=== PATIENT | female | born 1985 | race Caucasian/White ===

== ENCOUNTER 2017-03-09 23:13 | Emergency (ER) | payer MEDICAID ==
[2017-03-10] MEDS ORDERED: IBUPROFEN 600 MG TABLET PO ONE (00:25)
[2017-03-10] MEDS ORDERED: ACETAMINOPHEN 325 MG TABLET PO ONE (00:25)
--- NOTE | 2017-03-10 00:26 | ER Document Report ---
ED General - General Chief Complaint: Cold Symptoms Stated Complaint: TROUBLE BREATHING Time Seen by Provider: 03/09/17 23:36 Notes: Patient is a 31-year-old female who presents with cough, nasal congestion, bilateral ear pain worse on the right, and cough. Symptoms improved over the past 2-3 days. Patient states she came to the emergency department because she "wanted to figure out what was going on". She is uncertain whether or not she has had similar symptoms past. She has not tried anything to improve her symptoms. She does not identify anything that worsens her symptoms. She has not seen her primary doctor regarding these concerns. She is uncertain of whether or not she has had sick contacts. She denies any vomiting, diarrhea, fever, headache, neck pain or altered mental status. TRAVEL OUTSIDE OF THE [place] IN LAST 30 DAYS: No - Related Data Allergies/Adverse Reactions: codeine Allergy (Verified 03/09/17 23:14) Penicillins Allergy (Verified 03/09/17 23:14) tramadol [Tramadol] Allergy (Verified 03/09/17 23:14) Past Medical History - General Information source: Patient - Social History Smoking Status: Never Smoker Frequency of alcohol use: None Drug Abuse: None Family History: Arthritis, CAD, DM, Hyperlipidemia, Hypertension. denies: CVA, Malignancy, Thyroid Disfunction - Past Medical History Cardiac Medical History: Reports: Hx Hypertension Pulmonary Medical History: Reports: Hx Asthma Denies: Hx Bronchitis, Hx Pneumonia Neurological Medical History: Reports: Hx Migraine Musculoskeltal Medical History: Reports Hx Arthritis, Reports Hx Musculoskeletal Deformity, Reports Hx Musculoskeletal Trauma Past Surgical History: Reports: Hx Section - x1 - Immunizations Immunizations up to date: No Hx Diphtheria, Pertussis, Tetanus Vaccination: No Review of Systems - Review of Systems Notes: Constitutional: Negative for fever. HENT: Positive for sore throat. Eyes: Negative for visual changes. Cardiovascular: Negative for chest pain. Respiratory: Positive for cough Gastrointestinal: Negative for abdominal pain, vomiting or diarrhea. Genitourinary: Negative for dysuria. Musculoskeletal: Negative for back pain. Skin: Negative for rash. Neurological: Negative for headaches, weakness or numbness. 10 point ROS negative except as marked above and in HPI. Physical Exam - Vital signs Vitals: Temp Pulse Resp BP Pulse Ox 99 F 90 18 179/99 H 98 03/09/17 23:24 03/09/17 23:24 03/09/17 23:24 03/09/17 23:24 03/09/17 23:24 Interpretation: Hypertensive Notes: PHYSICAL EXAMINATION: GENERAL: Well-appearing, well-nourished and in no acute distress. HEAD: Atraumatic, normocephalic. EYES: Pupils equal round and reactive to light, extraocular movements intact, sclera anicteric, conjunctiva are normal. ENT: nares patent, oropharynx clear without exudates. Mild tonsillar erythema. Uvula is midline. TMs are clear bilaterally. Moist mucous membranes. NECK: Normal range of motion, bilateral anterior cervical lymphadenopathy that is mobile and tender to palpation LUNGS: Breath sounds clear to auscultation bilaterally and equal. No wheezes rales or rhonchi. HEART: Regular rate and rhythm without murmurs ABDOMEN: Soft, nontender, normoactive bowel sounds. No guarding, no rebound. No masses appreciated. EXTREMITIES: Normal range of motion, no pitting or edema. No cyanosis. NEUROLOGICAL: No focal neurological deficits. Moves all extremities spontaneously and on command. PSYCH: Normal mood, normal affect. SKIN: Warm, Dry, normal turgor, no rashes or lesions noted. Course - Re-evaluation Re-evalutation: 03/10/17 00:24 Presentation is most consistent with a viral upper respiratory infection. Patient is overall well appearance, vitals within normal limits, well-hydrated. Patient denies any headache, neck pain, and has no evidence of meningismus on examination. Lungs are clear bilaterally. No evidence of respiratory distress. Based on clinical exam and history, I do not suspect an acute pneumonia, meningitis, strep pharyngitis, or an acute encephalitis. No laboratory or imaging testing is indicated at this time. Suspect likely viral upper respiratory infection. At this time will discharge with return precautions and follow-up recommendations. Verbal discharge instructions given a the bedside and opportunity for questions given. Medication warnings reviewed. Patient is in agreement with this plan and has verbalized understanding of return precautions and the need for primary care follow-up in the next 24-72 hours. - Vital Signs Vital signs: Temp Pulse Resp BP Pulse Ox 98.8 F 83 16 168/95 H 97 03/10/17 00:52 03/10/17 00:52 03/10/17 00:52 03/10/17 00:52 03/10/17 00:52 Discharge - Discharge Clinical Impression: Viral upper respiratory infection Condition: Good Disposition: HOME, SELF-CARE Additional Instructions: Your symptoms are most likely due to a viral infection it should resolve over the next 7-14 days. You should take [id number] guanfacine per bottle instructions to help thin the mucus. For nasal congestion: I would recommend that you get [id number] oxymetazoline also known is afrin. Use only per bottle instructions and be sure to never use this for more than 3 days if you can develop severe rebound congestion. You may also use tylenol or ibuprofen as needed for aches and thorat discomfort. Please be sure to drink plenty of fluids and get rest. Return to the emergency department he began having difficulty breathing, chest pain, persistent vomiting, or any other symptoms that are concerning to you.
[2017-03-10 00:58] VITALS: BP 168/95
== END 2017-03-10 00:58 | disposition home or self-care (01) ==
LOC: ER 23:13
DX: J06.9 Acute upper respiratory infection, unspecified (principal); B97.89 Other viral agents as the cause of diseases classified elsewhere; R06.00 Dyspnea, unspecified; R05 Cough; R09.81 Nasal congestion; H92.03 Otalgia, bilateral
CPT/HCPCS: 99283

== ENCOUNTER 2017-03-17 15:01 | Emergency (ER) | payer MEDICAID ==
--- NOTE | 2017-03-17 17:54 | ER Document Report ---
HPI - HPI Patient complains to provider of: sore throat Onset: Other - 03-09 Onset/Duration: Gradual Pain Level: 5 Context: 31-year-old smoker female with sore throat since March 09 was diagnosed with a virus when she was seen in the emergency department. She has persisted with a sore throat it hurts to swallow. She does have an occasional cough with mucus. No chest pain or shortness of breath. No nausea vomiting or diarrhea. No abdominal pain. 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 Associated Symptoms: None Exacerbated by: Coughing, Other - swalowing Relieved by: Denies Similar symptoms previously: Yes Recently seen / treated by doctor: Yes - ROS ROS below otherwise negative: Yes Systems Reviewed and Negative: Yes All other systems reviewed and negative - REPRODUCTIVE LMP: 03/15/17 Reproductive: DENIES: : Past Medical History - General Information source: Patient - Social History Smoking Status: Current Every Day Smoker Frequency of alcohol use: None Drug Abuse: None Lives with: Family Family History: Arthritis, CAD, DM, Hyperlipidemia, Hypertension - Past Medical History Cardiac Medical History: Reports: Hx Hypertension Pulmonary Medical History: Reports: Hx Asthma Neurological Medical History: Reports: Hx Migraine Renal/ Medical History: Denies: Hx Peritoneal Dialysis Musculoskeltal Medical History: Reports Hx Arthritis, Reports Hx Musculoskeletal Deformity, Reports Hx Musculoskeletal Trauma Past Surgical History: Reports: Hx Section - x1 - Immunizations Immunizations up to date: No Hx Diphtheria, Pertussis, Tetanus Vaccination: No Vertical Provider Document - CONSTITUTIONAL Agree With Documented VS: Yes Exam Limitations: No Limitations - INFECTION CONTROL TRAVEL OUTSIDE OF THE [place] IN LAST 30 DAYS: No - HEENT HEENT: Normocephalic, Pharyngeal Erythema. negative: Conjuctival Injection, Pharyngeal Exudate, Tympanic Membrane Red - NECK Neck: Supple. negative: Lymphadenopathy-Left, Lymphadenopathy-Right - RESPIRATORY Respiratory: Breath Sounds Normal, No Respiratory Distress O2 Sat by Pulse Oximetry: 97 - CARDIOVASCULAR Cardiovascular: Regular Rate, Regular Rhythm - MUSCULOSKELETAL/EXTREMETIES Musculoskeletal/Extremeties: MAEW, FROM - NEURO Level of Consciousness: Awake, Alert, Appropriate - DERM Integumentary: Warm, Dry, No Rash Course - Vital Signs Vital signs: Temp Pulse Resp BP Pulse Ox 98.7 F 86 20 158/101 H 97 03/17/17 15:17 03/17/17 15:17 03/17/17 15:17 03/17/17 15:17 03/17/17 15:17 Discharge - Discharge Clinical Impression: Cough Pharyngitis Qualifiers: Pharyngitis/tonsillitis etiology: unspecified etiology Qualified Code(s): J02.9 - Acute pharyngitis, unspecified Hypertension Qualifiers: Hypertension type: unspecified Qualified Code(s): I10 - Essential (primary) hypertension Condition: Good Disposition: HOME, SELF-CARE Instructions: Anti-Inflammatory Medication ([facility]), Azithromycin ([facility]), Sore Throat ([facility]), Upper Respiratory Illness ([facility]) Additional Instructions: plenty of fluids motrin azithromycin antibiotis for 5 days rest tylenol chloraseptic spray for throat to lessen the pain Prescriptions: Ibuprofen [Motrin 800 mg Tablet] 800 mg PO Q8HP PRN #30 tablet PRN Reason: Azithromycin [Zithromax] 250 mg PO DAILY #6 tablet Forms: Return to Work Referrals: LAMONT CAMERON NP [Primary Care Provider] - Follow up as needed
[2017-03-17] MEDS ORDERED: IBUPROFEN 800 MG TABLET PO ONE (18:17)
[2017-03-17 18:40] VITALS: BP 150/97
== END 2017-03-17 18:40 | disposition home or self-care (01) ==
LOC: ER 15:01
DX: J02.9 Acute pharyngitis, unspecified (principal); R05 Cough; F17.200 Nicotine dependence, unspecified, uncomplicated; I10 Essential (primary) hypertension
CPT/HCPCS: 99282; J3490

== ENCOUNTER 2017-03-24 06:03 | Emergency (ER) | payer MEDICAID ==
[2017-03-24] MEDS ORDERED: IPRATROPIUM/ALBUTEROL 0.5-2.5 MG/3 ML AMPUL NEB ONE ×2 (07:32→08:55)
[2017-03-24] MEDS ORDERED: ACETAMINOPHEN 325 MG TABLET PO ONE (07:32)
[2017-03-24] MEDS ORDERED: IBUPROFEN 800 MG TABLET PO ONE (07:32)
[2017-03-24] MEDS ORDERED: LISINOPRIL 10 MG TABLET PO ONE (08:05)
--- NOTE | 2017-03-24 08:10 | RADIOLOGY REPORT (SQ) ---
EXAM DESCRIPTION: CHEST PA/LAT COMPLETED DATE/TIME: 03/24/2017 7:56 am REASON FOR STUDY: cough with fever COMPARISON: 11/06/2015 EXAM PARAMETERS: NUMBER OF VIEWS: two views TECHNIQUE: Digital Frontal and Lateral radiographic views of the chest acquired. RADIATION DOSE: NA LIMITATIONS: none FINDINGS: LUNGS AND PLEURA: No opacities, masses or pneumothorax. No pleural effusion. MEDIASTINUM AND HILAR STRUCTURES: No masses or contour abnormalities. HEART AND VASCULAR STRUCTURES: Heart normal size. No evidence for failure. BONES: No acute findings. HARDWARE: None in the chest. OTHER: No other significant finding. IMPRESSION: NO SIGNIFICANT RADIOGRAPHIC FINDING IN THE CHEST. TECHNICAL DOCUMENTATION: JOB ID: [id number] [employer]- All Rights Reserved
--- NOTE | 2017-03-24 08:10 | ER Document Report ---
ED General - General Chief Complaint: Flu Symptoms Stated Complaint: SORE THROAT,FEVER Time Seen by Provider: 03/24/17 07:27 TRAVEL OUTSIDE OF THE [place] IN LAST 30 DAYS: No - HPI Notes: 31-year-old female presents today with complaints of fever, dry cough, congestion for the last day. States she has been feeling under the weather for the last 2 weeks with sinus pressure.. Patient has been taking over-the- counter antipyretics without full relief. Denies any nausea, vomiting, diarrhea , blurred vision, double vision, loss of vision, abdominal, vaginal or pelvic pain. Denies any rashes. Patient did not get a flu shot this year. pt reports she finished a zpack course x 4 days ago for acute sinusitis. Patient is a smoker. Denies any chest pain, shortness of breath. Worse with time, nothing makes better Cough pain is 5/10, achy. Denies any rashes. Did not get the flu shot this year. - Related Data Allergies/Adverse Reactions: codeine Allergy (Verified 03/24/17 06:03) Penicillins Allergy (Verified 03/24/17 06:03) tramadol [Tramadol] Allergy (Verified 03/24/17 06:03) Past Medical History - General Information source: Patient - Social History Smoking Status: Current Every Day Smoker Chew tobacco use (# tins/day): No Frequency of alcohol use: None Drug Abuse: None Family History: Arthritis, CAD, DM, Hyperlipidemia, Hypertension Patient has suicidal ideation: No Patient has homicidal ideation: No - Past Medical History Cardiac Medical History: Reports: Hx Hypertension Pulmonary Medical History: Reports: Hx Asthma Denies: Hx Bronchitis, Hx Pneumonia Neurological Medical History: Reports: Hx Migraine Renal/ Medical History: Denies: Hx Peritoneal Dialysis Musculoskeltal Medical History: Reports Hx Arthritis, Reports Hx Musculoskeletal Deformity, Reports Hx Musculoskeletal Trauma Past Surgical History: Reports: Hx Section - x1 - Immunizations Immunizations up to date: No Hx Diphtheria, Pertussis, Tetanus Vaccination: No Review of Systems - Review of Systems Constitutional: See HPI EENT: See HPI Cardiovascular: No symptoms reported Respiratory: See HPI Gastrointestinal: No symptoms reported Genitourinary: No symptoms reported Female Genitourinary: No symptoms reported Musculoskeletal: No symptoms reported Skin: No symptoms reported Hematologic/Lymphatic: No symptoms reported Neurological/Psychological: No symptoms reported -: Yes All other systems reviewed and negative Physical Exam - Vital signs Vitals: Temp Pulse Resp BP Pulse Ox 100.9 F H 119 H 18 184/114 H 94 03/24/17 06:04 03/24/17 06:04 03/24/17 06:04 03/24/17 06:04 03/24/17 06:04 - Notes Notes: PHYSICAL EXAMINATION: GENERAL: Well-appearing, well-nourished and in no mild distress HEAD: Atraumatic, normocephalic. EYES: Pupils equal round and reactive to light, extraocular movements intact, conjunctiva are normal. ENT: Lateral roll TMs with bulging, no erythema. TMs intact. Bilateral ear canal without any erythema or swelling. Bilateral nasal turbinates with congestion and boggy. Noted right maxillary tenderness on palpation. Pharynx with erythema no exudate. NECK: Normal range of motion, supple without lymphadenopathy LUNGS: Breath sounds clear to auscultation bilaterally and equal. No wheezes rales or rhonchi. HEART: Regular rate and rhythm without murmurs ABDOMEN: Soft, nontender, nondistended abdomen. No guarding, no rebound. No masses appreciated. Female : deferred Musculoskeletal: Normal range of motion, no pitting or edema. No cyanosis. NEUROLOGICAL: Cranial nerves grossly intact. Normal speech, normal gait. Normal sensory, motor exams PSYCH: Normal mood, normal affect. SKIN: Warm, Dry, normal turgor, no rashes or lesions noted. Course - Re-evaluation Re-evalutation: 03/24/17 09:00 Patient had noted fever reduction with ibuprofen and Tylenol. Patient felt better after 2 treatments with DuoNeb. Patient states she felt better. Discuss results with her that chest x-ray was negative for any acute findings. Will discharge patient home with antibiotic, prednisone for her coughing and a Ventolin inhaler. Discussed with patient the importance of taking antipyretics such as Tylenol and ibuprofen, staggering every 3 hour to take the opposite medication to keep fever down. If fevers persist after 2 days, reevaluate with her primary care. Advised patient his symptoms become worse to return to the emergency room. Patient verbalized understanding of these instructions and agree with plan of care. Patient was discharged home. 5 - Vital Signs Vital signs: Temp Pulse Resp BP Pulse Ox 99.6 F 100 17 140/85 H 97 03/24/17 09:28 03/24/17 09:28 03/24/17 08:55 03/24/17 09:28 03/24/17 09:28 Discharge - Discharge Clinical Impression: Cough, URI with cough and congestion Clinical Impression: (Ruled Out): Acute sinusitis Condition: Good Disposition: HOME, SELF-CARE Additional Instructions: UPPER RESPIRATORY ILLNESS: You have a viral infection of the respiratory passages -- a "cold." This common infection causes nasal congestion, drainage, and often sore throat and cough. It is highly contagious. The disease usually lasts about 10 to 14 days. There is no "cure" for the viral infection -- it must run its course. If there is a complication, such as bacterial infection in the nose, sinuses, middle ear, or bronchial tubes, antibiotics may be required. The antibiotics won't affect the virus. Drink plenty of fluids. A humidifier may help. An expectorant medication or decongestant may make you more comfortable. Use acetaminophen or ibuprofen for fever or aches. See the doctor if fever persists over two days, if there is any significant worsening of your symptoms, or if you simply fail to improve as expected. BRONCHOSPASM: You have tightness in the bronchial tubes, called bronchospasm. This often occurs with bronchial infections. Allergies, inhaled chemicals, and polluted or cold air can also provoke bronchospasm. It's more likely in patients with asthma in the family. Emergency treatment of bronchospasm may include adrenaline shots or bronchodilator aerosol. You may feel lightheaded and have a rapid pulse for an hour or two. Rest and get plenty of fluids. At home, we'll treat you with a bronchodilator inhaler. Antibiotics and corticosteroids may be required for some patients. Until you recover, avoid chemical fumes, dusts, pollens, and exercising in very cold or dry air. If you smoke, stop now!! If you develop a fever, increased wheezing, chest pain, or severe shortness of breath, you should contact the doctor immediately. DECONGESTANT MEDICATION: A decongestant medicine has been prescribed. Often this medicine is combined in the same tablet with an antihistamine or expectorant. This type of medicine is helpful in treating a bad cold or sinus condition, as well as in treatment of the nasal congestion of hay fever. It is not of much benefit for lung infections. Decongestant medicines are related to stimulants. They can cause an increase in blood pressure and heart rate. Persons with heart disease and high blood pressure should not take decongestants without discussing this with the physician. If you develop palpitations, chest pain, headache, or tremors, stop the medicine and consult your physician. . INHALED BRONCHODILATORS: You have received a treatment of and/or prescription for an inhaled bronchodilator -- a medication which stimulates the airways in the lung to dilate. This improves the flow of air in asthma, bronchitis, and emphysema. These medicines have some similarity to adrenaline, and can cause similar side effects: shakiness, racing heart, and a sense of nervousness. These side effects decrease with time. Contact your doctor if these side effects are severe. Do not over-use the medicine. Too-frequent use of the inhaler may make it ineffective. Call your doctor if the inhaler is not controlling your symptoms at the prescribed doses. STEROID MEDICATION: You have been given an injection of or oral medicine of the cortisone/ steroid class. This medication is used to control inflammation or allergy. Ruel t is usually only given for a short period of time, until the acute process subsides. There are usually no side effects from short-term use of cortisone-like medications. Some persons feel an increased sense of well-being and are not sleepy at bedtime. Long-term use of cortisone medications is best avoided, unless required for a severe condition. If your condition does not remit, or relapses after the course of corticosteroid medication, you should consult your physician. USE OF ACETAMINOPHEN (Tylenol): Acetaminophen may be taken for pain relief or fever control. It's much safer than aspirin, offering a wider range of "safe" dosages. It is safe during . Some brand names are Tylenol, Panadol, Datril, Anacin 3, Tempra, and Liquiprin. Acetaminophen can be repeated every four hours. The following are maximum recommended dosages: >89 pounds or adults 650 mg to 900 mg Acetaminophen can be repeated every four hours. Maximum dose not to exceed 4000 mg a day. SMOKING: If you smoke, you should stop smoking. The tar and chemicals in cigarette smoke are harmful. Smoking has been shown to cause: emphysema chronic bronchitis lung cancer mouth and throat cancer stomach and pancreas cancer premature aging defects In addition, smoking increases ear and lung infections in children of smokers. FOLLOW-UP CARE: If you have been referred to a physician for follow-up care, call the physician s office for an appointment as you were instructed or within the next two days. If you experience worsening or a significant change in your symptoms, notify the physician immediately or return to the Emergency Department at any time for re-evaluation. Return immediately for any new or worsening symptoms. Follow up with primary care provider, call tomorrow to make followup appointment. Prescriptions: Albuterol Sulfate [Ventolin HFA MDI 18 GM] 1 - 2 puff IH Q4H PRN #1 mdi PRN Reason: Azithromycin 250 mg PO DAILY #6 tablet Nystatin 100,000 unit PO QID #250 ml Prednisone 20 mg PO BID #10 tablet Referrals: MAULIK CAMERON MD [Primary Care Provider] - Follow up as needed
[2017-03-24 08:43] LABS: A TYPE INFLUENZA AG NEGATIVE (NEGATIVE); B INFLUENZA AG NEGATIVE (NEGATIVE)
[2017-03-24 09:29] VITALS: BP 140/85
== END 2017-03-24 09:29 | disposition home or self-care (01) ==
LOC: ER 06:03
DX: J06.9 Acute upper respiratory infection, unspecified (principal); R05 Cough; J02.9 Acute pharyngitis, unspecified; R09.81 Nasal congestion; R50.9 Fever, unspecified; F17.200 Nicotine dependence, unspecified, uncomplicated
CPT/HCPCS: 94640 ×2; 99284; 87070; 87880; 87804; 71046; J3490 ×2; J7620

== ENCOUNTER → 2019-11-27 | Outpatient (CLI) | payer BC | LOC: RAD 07:40 | PROVIDERS: ATTEND Otolaryngology | DX: J32.9 Chronic sinusitis, unspecified (principal) | CPT/HCPCS: 70486 ==

== ENCOUNTER 2020-02-03 07:30 | Day surgery (SDC) | payer BC ==
[2020-01-30 08:22] LABS: HEMATOCRIT 39.4 % (36.0-47.0); HEMOGLOBIN 13.3 g/dL (12.0-15.5); MEAN CORPUSCULAR HEMOGLOBIN 27.3 pg (27.0-33.4); MEAN CORPUSCULAR HGB CONC 33.9 g/dL (32.0-36.0); MEAN CORPUSCULAR VOLUME 81 fl (80-97); PLATELET COUNT 306 10^3/uL (150-450); RED BLOOD COUNT 4.89 10^6/uL (3.72-5.28); RED CELL DISTRIBUTION WIDTH 13.9 % (11.5-14.0); WHITE BLOOD COUNT 10.4 10^3/uL (4.0-10.5)
[2020-01-30 08:24] LABS: APPEARANCE,URINE CLOUDY; BILIRUBIN,URINE NEGATIVE (NEGATIVE); COLOR,URINE YELLOW; GLUCOSE, URINE NEGATIVE (NEGATIVE); KETONES,URINE NEGATIVE (NEGATIVE); LEUKOCYTE ESTERASE,URINE MODERATE (NEGATIVE); NITRITE,URINE NEGATIVE (NEGATIVE); PROTEIN,URINE NEGATIVE (NEGATIVE); URINE SPECIFIC GRAVITY 1.015; UROBILINOGEN,URINE NEGATIVE mg/dL (<2.0)
[2020-01-30 08:50] LABS: ALBUMIN 3.9 g/dL (3.5-5.0); ALKALINE PHOSPHATASE 68 U/L (38-126); ANION GAP 9 (5-19); ASPARTATE AMINO TRANSFERASE 21 U/L (14-36); BILIRUBIN,DIRECT 0.1 mg/dL (0.0-0.4); BILIRUBIN,TOTAL 0.4 mg/dL (0.2-1.3); BLOOD UREA NITROGEN 8 mg/dL (7-20); CALCIUM 9.6 mg/dL (8.4-10.2); CARBON DIOXIDE 24 mmol/L (22-30); CHLORIDE 105 mmol/L (98-107); GLUCOSE 193 mg/dL (75-110); POTASSIUM 4.5 mmol/L (3.6-5.0); TOTAL PROTEIN 6.4 g/dL (6.3-8.2)
[~2020-02-03 07:30] MED LIST: FENTANYL CITRATE INJ/PF 100 MCG/2 ML AMPUL ONE; GENTAMICIN SULFATE 80 MG in DEXTROSE 5%-WATER 100 ML IV PRN; KETOROLAC TROMETHAMINE 60 MG/2 ML SDV ONE; MIDAZOLAM 2 MG/2 ML INJ ONE; ONDANSETRON HCL INJ/PF 4 MG/2 ML SDV ONE; PROPOFOL INJ 200 MG/20 ML VIAL IV ONE
[2020-02-03] MEDS ORDERED: LIDOCAINE 1%/EPINEPHRINE INJ 20 ML VIAL ONE (08:46)
[2020-02-03] MEDS ORDERED: ONDANSETRON HCL INJ/PF 4 MG/2 ML SDV IV PRN (09:09)
[2020-02-03] MEDS ORDERED: MEPERIDINE HCL/PF INJ 25 MG/1 ML DISP.SYRIN IV PRN (09:09)
[2020-02-03] MEDS ORDERED: DIPHENHYDRAMINE HCL 50 MG/ML VIAL IV PRN (09:09)
[2020-02-03] MEDS ORDERED: FENTANYL CITRATE INJ/PF 100 MCG/2 ML AMPUL IV PRN ×3 (09:09)
[2020-02-03] MEDS ORDERED: PROPOFOL INJ 200 MG/20 ML VIAL IV ONE (09:54)
[2020-02-03] MEDS ORDERED: FENTANYL CITRATE INJ/PF 100 MCG/2 ML AMPUL ONE (10:02)
--- NOTE | 2020-02-03 10:06 | Operative Report ---
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 She was then inducted under general anesthesia. Following this she was repositioned in a dorsolithotomy position prepped and draped in a sterile fashion. Bladder was drained of approximately 50 cc of clear yellow urine. Pelvic under anesthesia was then performed. Weighted vaginal speculum was inserted. Cervix is grasped on its anterior lip with a single-tooth tenaculum. The endocervical canal was then curetted with a small sharp curette. The cervix was then dilated with Hegar dilators. Endometrial cavity was sounded to 12 cm. Endometrial cavity was then curetted with a sharp curette. At this point the weighted vag inal speculum was changed to a long bladed vaginal speculum. Attempts were made at this time to replace the tenaculum in the lateral portion of the cervix on both sides. This was compromised by vaginal redundancy. It became apparent that we may not have enough room to proceed with a cervical conization. Cervical biopsies were then taken at 6 and 12:00. Bleeding in the cervix was then cauterized using the Bovie. Monsel's was applied to the cervical biopsy at 12:00. This terminated the procedure. Equipment was removed. Anesthesia was discontinued and the patient was placed back in the supine position. Patient tolerated the procedure well had an estimated blood loss of 35 cc.
[2020-02-03] MEDS ORDERED: OXYCODONE-ACETAMINOPHEN 5-325 MG TABLET ONE (10:38)
[2020-02-03 12:32] VITALS: BP 126/76
== END 2020-02-03 11:35 | disposition home or self-care (01) ==
LOC: OROUT 07:30
PROVIDERS: ATTEND Obstetrics & Gynecology
DX: N87.0 Mild cervical dysplasia (principal); N89.8 Other specified noninflammatory disorders of vagina; E11.9 Type 2 diabetes mellitus without complications; Z79.84 Long term (current) use of oral hypoglycemic drugs; J45.909 Unspecified asthma, uncomplicated; I10 Essential (primary) hypertension; Z79.51 Long term (current) use of inhaled steroids; Z20.828 Contact with and (suspected) exposure to other viral communicable diseases
CPT/HCPCS: 58120; 36415; 82962; 85027; 81025; 80053; 81001; 88305 ×2; U0003; J2250; J1885; J3010; J1580; J3490; J2405; J7060; J2704; C9803; 87635; 940